=== PATIENT | male | born 1980 | race African-American/Black ===

== ENCOUNTER → 2020-10-02 | Outpatient (CLI) | payer OTHER ==
[~2020-10-02] MED LIST: IOHEXOL 300 MG/ML 75 ML VIAL. IV ONE
--- NOTE | 2020-10-02 10:01 | RAD ---
Exam Date: 10/02/2020 9:[address] HEAD WITHOUT AND WITH IV CONTRAST Indication: Reason: DIZZINESS, MIGRAINES / Spl. Instructions: / History: . TECHNIQUE: Head CT was performed without and with intravenous contrast. One or more of the followin g dose reduction techniques were utilized: *Automated exposure control (AEC) *Adjustment of mA and/or kV according to patient size *Use of iterative reconstruction technique *CT scan done according to ALARA, or ALARA/IMAGE GENTLY FINDINGS: The ventricles and sulci are normal for the patient's stated age. There is no evidence of acute int racranial hemorrhage, extra-axial collection, mass effect, midline shift, or acute territorial infarc t. No lesion of the skull base or the calvarium is seen. The visualized paranasal sinuses, mastoid ai r cells and orbits are normal in appearance. No abnormal contrast enhancement is seen. IMPRESSION: No evidence for acute intracranial abnormality. Electronically signed by: Janak Anders MD (10/02/2020 9:58 AM) [id number]
== END ==
LOC: CT 08:56
PROVIDERS: ATTEND Family Medicine Sports Medicine
DX: R42 Dizziness and giddiness (principal)
CPT/HCPCS: 70470; Q9967